=== PATIENT | female | born 1940 | race Caucasian/White ===

== ENCOUNTER 2017-03-04 23:04 | Inpatient (IN) | payer OTHER ==
--- NOTE | ~2017-03-04 | HP ---
Unit #: [id number] #: [id number] Patient: SASCHA GARNETT [id number] [address] [place], [place] [address] [id number] MR#: [id number] NAME: SASCHA GARNETT. ROOM: 340 Age: 76 Sex: F Admission Date: 03/05/2017 : 1940 Attending Physician: Paolo Smith M.D. Primary Care Physician: No Primary Care Physician HISTORY AND PHYSICAL CHIEF COMPLAINT Shortness of breath. HISTORY OF PRESENT ILLNESS The patient is a 76-year-old female who presents to [facility] emergency department with a complaint of five or six days of worsening shortness of breath. She states that it is associated with a productive cough. No fevers, nausea, vomiting, dyspnea on exertion or chest pain. She denies wheezes. She states that she has no prior history of lung disease of which she is aware. She states that she does feel somewhat better with oxygen applied in the emergency department. PAST MEDICAL HISTORY Hypertension. PAST SURGICAL HISTORY Hysterectomy. SOCIAL HISTORY The patient continues to smoke daily. Denies alcohol or illicit drug use. FAMILY HISTORY Reviewed and noncontributory in this 76-year-old female. ALLERGIES No known drug allergies. HOME MEDICATIONS Lisinopril 20 mg p.o. daily. REVIEW OF SYSTEMS Ten point review of systems was obtained, negative except as per HPI. PHYSICAL EXAMINATION VITAL SIGNS: Temperature 98.6, pulse 95, blood pressure 136/56. GENERAL: 76-year-old female in no acute distress, who appears stated age. HEENT: Pupils equally round. Extraocular movements intact. Mucous membranes are dry. NECK: Supple. No JVD, no lymphadenopathy. CARDIAC: Regular rate and rhythm. No murmurs, gallops or rubs. LUNGS: Occasional wheeze bilaterally with rales in the left base. ABDOMEN: Nontender, nondistended. Positive bowel sounds. EXTREMITIES: No clubbing, cyanosis or edema. They are warm and dry. PSYCH: Alert and oriented x3. Affect is appropriate. Unit #: [id number] #: [id number] Patient: SASCHA GARNETT NEUROLOGICAL: Cranial nerves II-XII intact grossly. The patient moves all extremities equally and with purpose. SKIN: No rashes, bruises or ulcers. MUSCULOSKELETAL: No muscle or joint pain, no muscle or joint swelling. DIAGNOSTIC STUDIES LABORATORY: Sodium 130, otherwise chemistries are unremarkable. White count is 5.9, hemoglobin 11.1. Blood cultures are drawn but pending. IMAGING: Chest x-ray shows large lung [place] with question of atelectasis or infiltrate in the left base. ASSESSMENT AND PLAN 1. Acute hypoxic respiratory failure: The patient is actually sat'ing in the 80s on room air and has been started on supplemental oxygen. She currently requires 2 L to maintain her sats in the 90s. The patient has been started on Solu-Medrol 40 q.8 as well. She has no known history of chronic obstructive pulmonary disease. However, given her smoking history and the appearance on her chest x-ray, this is a likely diagnosis. 2. Pneumonia: I have ordered a procalcitonin. The patient has been started on antibiotics for a community-acquired pneumonia. These will be changed pending procalcitonin and the patient's clinical course. 3. Hypertension: Continue home meds. 4. Prophylaxis: The patient will be started on SCDs. Dictated by Paolo Smith M.D. ASAD/jaime TD: 03/06/2017 14:20 JOB #: [id number] HISTORY AND PHYSICAL Page 1 of 1 X Paolo Smith MD HISTORY AND PHYSICAL
--- NOTE | ~2017-03-04 | EKG ---
PATIENT: SASCHA GARNETT UNIT #: [id number] Ventricular Rate: 97 BPM Atrial Rate: 97 BPM P-R Interval: 142 ms QRS Duration: 72 ms Q-T Interval: 338 ms QTC Calculation(Bezet): 429 ms P [place]: 47 degrees Calculated R [place]: 48 degrees Calculated T [place]: 68 degrees Diagnosis Line: Normal sinus rhythm Diagnosis Line: Normal ECG Diagnosis Line: When compared with ECG of 22-APR-2016 08:51, Diagnosis Line: No significant change was found Diagnosis Line: Confirmed by MARI ESTES MD ([id number]) on Diagnosis Line: 03/07/2017 8:34:02 AM INTERPRETING MD: FRANKLYN TONG
--- NOTE | ~2017-03-04 | CR72 ---
[facility] A Service of [facility] & [facility] RADIOLOGY TEXT RESULTS PATIENT: SASCHA GARNETT LOCATION: [facility] 340- : 39 UNIT #: [id number] AGE: [address]: Paolo Smith MD SEX: F ORDER DR: [id number] [facility] [address] [facility]. [place], [place] [address] [id number] MR#: [id number] #: [id number] NAME: SASCHA GARNETT : 1940 SEX: F STUDY DATE/TIME: 03/05/2017 00:37 UNIT: [address] ROOM: [facility] STUDY DESCRIPTION: CR Chest Single View Portable Attending Physician: Paolo Smith M.D. Ordering Physician: Wil Rayo M.D. Primary Care Physician: Primary Care Physician No MEDICAL IMAGING REPORT This report is preliminary unless electronic signature is present EXAM Portable chest 03/05/2017 00:37 INDICATION Right-side chest pain, shortness of air, cough that started today. History of smoking. FINDINGS AP portable chest x-ray compared with 04/22/2016. Cardiac and mediastinal contours are normal. There is emphysema. There is some minimal infiltrate or atelectasis at the left base. Lungs are otherwise clear. No pneumothorax. IMPRESSION Emphysema with mild infiltrate or atelectasis in the left lung base. Dictated by... Bashir Dinero Jr., M.D. THIS IS AN ELECTRONICALLY VERIFIED REPORT Bashir Dinero Jr., M.D. at 03/05/2017 9:13 PM KELLEY/balbina TD: 03/05/2017 09:13 JOB #: [id number] MEDICAL IMAGING REPORT Page 1 of 1 COPY
[2017-03-05 00:13] LABS: BASOPHIL% 0.3 % (0-2.5); EOSINOPHIL% 0.1 % (0.0-7.0); HEMOGLOBIN 11.1 gm/dL (12.0-16.0); LYMPHOCYTE# 1.2 X10e3 (1.0-3.5); LYMPHOCYTE% 20.2 % (17.0-45.0); MEAN CELL VOLUME 88.6 FL (83-96); MEAN CORPUSCULAR HGB CONC 32.7 g/dL (30-36); MEAN PLATELET VOLUME 7.9 FL (6.5-11.5); MONOCYTE% 17.3 % (3.0-12.0); NEUTROPHIL# 3.7 X10e3 (1.5-7.1); NEUTROPHIL% 62.1 % (40-75); PLATELET COUNT 185 X10e3 (140-420); RED BLOOD COUNT 3.83 X10e (3.90-5.30); RED CELL DISTRIBUTION WIDTH 14.5 % (11.0-15.5); WHITE BLOOD COUNT 5.9 X10e3 (4.0-10.5)
[2017-03-05 00:15] LABS: DIFF IND NO
[2017-03-05 00:34] LABS: BUN/CREATININE RATIO 13.75; CALCIUM SERUM 8.6 mg/dL (8.4-10.2); CREATININE SERUM 0.8 mg/dL (0.6-1.4); GLOM FILT RATE Estimated 71.2 mL/min (>60); POTASSIUM 3.6 mmol/L (3.5-5.1)
[2017-03-05] MEDS ORDERED: LISINOPRIL20 MG PO (01:19)
[2017-03-06 09:31] LABS: HEMATOCRIT 31.7 % (35.0-45.0); HEMOGLOBIN 10.1 gm/dL (12.0-16.0); MEAN CELL VOLUME 90.2 FL (83-96); MEAN CORPUSCULAR HEMOGLOBIN 28.8 PG (28-34); MEAN CORPUSCULAR HGB CONC 31.9 g/dL (30-36); RED BLOOD COUNT 3.52 X10e (3.90-5.30); RED CELL DISTRIBUTION WIDTH 14.9 % (11.0-15.5); WHITE BLOOD COUNT 6.8 X10e3 (4.0-10.5)
[2017-03-06 09:56] LABS: BUN/CREATININE RATIO 21.42; CALCIUM SERUM 8.7 mg/dL (8.4-10.2); CREATININE SERUM 0.7 mg/dL (0.6-1.4); GLOM FILT RATE Estimated 83.6 mL/min (>60)
[2017-03-06] MEDS ORDERED: ALBUTEROL17 GM INH (14:50)
[2017-03-06] MEDS ORDERED: DOXYCYCLINE HY100 M3 PO (14:51)
[2017-03-06] MEDS ORDERED: PREDNISONE10 MG PO (14:52)
== END 2017-03-06 15:36 | disposition home or self-care (01) | DRG 189 ==
LOC: CED 23:04 → CEDOF 03-05 02:45 → CED 03-05 03:23 → CEDOF 03-05 07:34 → C3A PCU 03-05 08:22 → CEDOF 03-05 08:22 → C3A PCU 03-06 15:36
PROVIDERS: Emergency Medicine; Internal Medicine
DX: J96.01 Acute respiratory failure with hypoxia (principal); J18.9 Pneumonia, unspecified organism; J44.0 Chronic obstructive pulmonary disease with (acute) lower respiratory infection; J44.1 Chronic obstructive pulmonary disease with (acute) exacerbation; I10 Essential (primary) hypertension; F17.210 Nicotine dependence, cigarettes, uncomplicated; Z90.710 Acquired absence of both cervix and uterus
CPT/HCPCS: 71010; 80048; 82308; 85025; 85027; 87040; 93005; 94640; 94644; 94760; 99291; J0456; J0696; J2270; J2405; J2920; J2930